=== PATIENT | male | born 1970 | race Caucasian/White ===

== ENCOUNTER 2018-08-22 05:19 | Inpatient (IN) | payer BC ==
[~2018-08-22] VITALS: Ht 177.8 cm; Wt 104.3 kg
--- NOTE | ~2018-08-22 | H ---
[facility] [place] [address] HISTORY AND PHYSICAL Name: ZELALEM MATOS Room #: [facility] M.R.#: [id number] Admission: ������������������ Attend Phys: Abdirizak Arita MD Discharge: ������������������ Date of : 72 Report #: [id number] THIS REPORT FOR: //name// CC: Abdirizak Holm PREOPERATIVE DIAGNOSES: Abdominal pain, cholecystitis with cholesterolosis. HISTORY OF PRESENT ILLNESS: The patient is a 47-year-old who developed abdominal pain in June. The patient woke up with bloating, upset stomach. Discomfort in the right upper quadrant. He had pain in the right upper quadrant, especially when he bent over. His bloating is better. The patient also had increased gas. No vomiting. No diarrhea. The pain did not seem to be related to food. The patient few years ago was found to have acid reflux, was put on omeprazole. No family history of gallbladder disease. The patient had an ultrasound performed that showed echogenic focus in the gallbladder wall, which measured 4 mm. There were two of these. No definitive stone, no wall thickening. These gallbladder polyps that were seen likely represent cholesterolosis. His symptoms are consistent with gallbladder disease. The patient is recommended to have his gallbladder removed. He is brought in for laparoscopic cholecystectomy. PAST MEDICAL HISTORY: The patient has an elevated cholesterol. No heart disease, no diabetes, no high blood pressure, no liver or kidney disease, no history of bleeding disorder. No history of blood clot. MEDICATIONS: Citalopram, omeprazole, atorvastatin. PAST SURGICAL HISTORY: Hernia repairs, right knee surgery in 2018. FAMILY HISTORY: Father of cancer. 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 He does not smoke. Also denies drinking history. REVIEW OF SYSTEMS: No chest pain, shortness of breath or palpitation. PHYSICAL EXAMINATION: GENERAL: The patient is a well-developed, well-nourished, not in acute distress. HEENT: Pupils react to light. Extraocular muscles are intact. Oropharynx is clear. NECK: Soft and supple, no masses. LUNGS: Clear to auscultation. HEART: Regular rate and rhythm. No murmur or gallop. ABDOMEN: Soft with tenderness in right upper quadrant. No mass, guarding, rigidity or rebound. [address] [address] HISTORY AND PHYSICAL Name: ZELALEM MATOS Room #: [facility] M.R.#: [id number] Admission: ������������������ Attend Phys: Abdirizak Arita MD Discharge: ������������������ Date of : 72 Report #: [id number] EXTREMITIES: No cyanosis, clubbing or edema. Motor function is intact. Sensory exam is normal. IMPRESSION AND PLAN: The patient is a 47-year-old with abdominal pain about a month ago. The patient woke up with pain in the right upper quadrant. Nagging pain, discomfort, bloating, upset stomach. This is consistent with gallbladder disease. His ultrasound shows tiny gallbladder wall lesions, probably representing cholesterolosis. The nature of the diagnosis discussed. The patient is recommended to proceed with laparoscopic cholecystectomy. Procedure was discussed in detail. The patient understands the procedure and the risks involved and wishes to proceed. Risk of bleeding, infection, common bile duct injury was discussed. ��������������������������������������������� ���������������������������������������� By: ��������������������������������������������� [id number] Abdirizak Arita MD /nt
--- NOTE | ~2018-08-22 | O ---
[facility] [place] [address] OPERATIVE REPORT Name: ZELALEM MATOS Room #: 459-P ADM IN M.R.#: [id number] Admission: 08/22/18 ������������������ Attend Phys: Abdirizak Arita MD Discharge: ������������������ Date of : 72 Report #: [id number] THIS REPORT FOR: //name// CC: Abdirizak Holm MD PREOPERATIVE DIAGNOSIS: Cholecystitis with cholesterolosis. POSTOPERATIVE DIAGNOSIS: Cholecystitis with cholesterolosis. PROCEDURES PERFORMED: Laparoscopic cholecystectomy with cholangiogram. ANESTHESIA: General anesthesia. COMPLICATIONS: None. ESTIMATED BLOOD LOSS: 5 mL. FINDINGS: The gallbladder is covered by adhesions. The common bile duct is normal and small size on intraoperative cholangiogram. The gallbladder contained extensive cholesterol buildup lining the mucosa. The patient's previous hernia repair looks intact, abdominal wall is smooth. DESCRIPTION OF PROCEDURE: The patient under general anesthesia, abdomen was prepped and draped in sterile fashion. IV antibiotic was administered. The patient had a previous laparoscopic repair of incisional hernia. He actually came in with an emergency incarceration. Laparoscopic hernia was repaired. It is in the epigastric area. Care was used to avoid this area. A cutdown incision was made along the edge of the rectus muscle laterally on the right side. This was slightly lateral to where one of the transfascial suture is located. A 2.5 cm incision was made. The anterior fascia was isolated. This was opened, 0 Vicryl suture placed on the fascia. The second layer is essentially the internal oblique fascia. This was opened and then 0 Vicryl suture placed on it for retraction. The peritoneum was then found and then opened. A 0 Vicryl placed on the edge of the peritoneum. The free abdomen was visualized. A balloon trocar was placed through the peritoneal opening. The balloon was inflated keeping the trocar in place. CO2 was then delivered. The prior hernia repair looks intact. The mesh actually is very difficult to even see, it is all covered by new peritoneum. No defect identified. There were some omental adhesions superiorly. This was left alone. Two 5 mm trocars were placed in the right upper quadrant laterally and 5 mm trocars were placed in the right epigastrium. The view is slightly altered by the initial trocar placement, but still good visualization was able to be obtained. The patient was tilted with his head right side up. The gallbladder is covered by pretty dense fatty adhesions. This started pretty high up on the fundus and then goes all the way down. The adhesions were taken down without difficulty. The [address] [address] OPERATIVE REPORT Name: ZELALEM MATOS Room #: 459-P [facility] IN M.R.#: [id number] Admission: 08/22/18 ������������������ Attend Phys: Abdirizak Arita MD Discharge: ������������������ Date of : 72 Report #: [id number] proximal part of the gallbladder was identified. As the gallbladder tapered, there is a branch of the cystic artery that looped over the junction of cystic duct to the gallbladder. I think this is probably pinching on the gallbladder outlet. Visualizing the gallbladder, we can see cholesterol buildup in the mucosa even through the thin wall. This artery that was loopened over the gallbladder and cystic duct junction was free. Two clips were placed proximally and one distally and then the branch of cystic artery was then divided. The cystic duct was isolated. The cystic duct as it joined the gallbladder is slightly dilated, probably being pinched. A clip was placed in junction of cystic duct to the gallbladder. Opening was made in the cystic duct. Once I made the opening in the cystic duct, there is sludgy material that was in the cystic duct. This was expressed out. Cholangiogram catheter was then placed. It was difficult to get a good seal around the catheter. It did have some extravasation of the dye at the insertion site, but the more proximal cystic duct and the common duct filled out well on the intraoperative cholangiogram. The common duct is pretty small size. No filling defect identified in the common duct. Once the cholangiogram was obtained, the catheter was then removed. The proximal cystic duct was then clipped x 2 and then cystic duct was divided. Dissection was then carried free in the gallbladder, and then at the posterior part of the gallbladder, there is another artery identified. This was clipped x 2 and then the other side was cauterized. There are two small strands of tissue that I also put one clip on. Gallbladder was free from the liver bed without difficulty. The gallbladder was then removed through the Origin balloon trocar site, came out without difficulty. The gallbladder was opened off the field, had extensive cholesterolosis lining the mucosa. A couple of these are 3-4 mm in size, which were the ones that were found on the ultrasound. No lesion of the gallbladder was seen. The interpretation of polyp in the gallbladder is not cholesterol material, cholesterol polyp or cholesterolosis. Liver bed was checked, hemostasis obtained. The clips were intact. I did not see any evidence of any bile around the cystic duct and it is clipped. Irrigation was aspirated out. CO2 was evacuated. Trocars removed. The cutdown site was closed with 0 PDS. The peritoneum was closed with 0 PDS. The internal oblique fascia was closed with 0 PDS [id number] x 2. The external oblique fascia was then closed with 0 PDS [id number] x 2. Skin was irrigated, closed with 5-0 PDS. Steri-Strip, Band-Aids applied. The patient tolerated the procedure well and was taken to recovery. ��������������������������������������������� ���������������������������������������� By: ��������������������������������������������� 1330 [id number] Abdirizak Arita MD /nt
[~2018-08-22 05:19] MED LIST: ALPRAZOLAM 0.0.25 M1 PO; ALPRAZOLAM 0.50.5 M1 PO; ALPRAZOLAM PO; ANDROGEL150 GM; ANDROGEL2.5 GM TD; CELEXA 20 MG TA20 MG PO; CELEXA40 MG PO; CITALOPRAM PO; COLACE100 MG PO; LIPITOR10 MG PO; NORCO 5-325 TA1 EACH PO; OMEPRAZOLE 20 M20 M1 PO; PRILOSEC 20 MG20 MG PO; PRILOSEC40 MG PO; ROPINIROLE HCL2 MG PO; TAMSULOSIN HCL0.4 MG PO; VALIUM5 MG PO
[2018-08-22 09:00] VITALS: BP 104/70
[2018-08-22 15:25] VITALS: BP 115/76
--- NOTE | 2018-08-22 17:51 | NUR ---
ARRIVED FROM PACU. ABDOMEN SOFT ROUND WITH DRY LAP SITES. BS ACITVE AND REPORTS EXPELLING FLATUS. IV INFUSING. TAKING IN CLEAR LIQUIDS WITH GOOD TOLERATION. PAIN RELIEVED WITH ONE HYDROCODONE. DENIES NAUSEA. VERY PLEASANT. LUNGS CLEAR ON ROOM AIR.
[2018-08-22 21:32] VITALS: BP 111/70
--- NOTE | 2018-08-23 03:44 | NUR ---
ASSESSMENT: PT REMAINS ALERT AND ORIENT TIMES FOUR. UP IN THE CORRIDOR WITH STEADY GAIT. INCISIONAL SITES WITH BANDAIDS C/D/I. TOLERATING PO INTAKE OF CLEAR LIQUIDS. ANTICIPATING GOING HOME TODAY. VSS, AFEBRILE. SR PER MONITOR. GOOD PROGRESSION TOWARDS DC GOALS. WILL CONTINUE TO MONITOR.
[2018-08-23 03:58] VITALS: BP 106/70
[2018-08-23 08:00] VITALS: BP 112/81
[2018-08-23] MEDS ORDERED: HYDROCODONE-AP1 EAC6 PO (12:23)
[2018-08-23 12:46] VITALS: BP 112/81
--- NOTE | 2018-08-23 14:33 | NUR ---
PT VS STABLE, PT DISCHARGED HOME. PT LEFT UNIT VIA WHEELCHAIR TO PRIVATE VEHICLE.
--- NOTE | 2018-08-25 17:06 | PATH ---
[facility] [address] [place] [address] PATHOLOGY RPT PROCEDURE Name: ZELALEM MATOS Room #: 459-P DIS IN M.R.#: [id number] ������������������ Admission: 08/22/18 ������������������ Date of : 72 Discharge: 08/23/18 Report #: [id number] Path Case #: [id number] [facility] Accession Number: [id number] . 01 Material submitted: . gallbladder - GALLBLADDER . 01 Clinical history: . Gallbladder disease . 02 Diagnosis: Gallbladder, cholecystectomy: - Mild chronic cholecystitis. - Extensive cholesterolosis. (IUV:pit 08/25/2018) QTP/08/25/2018 . 02 Electronically signed: . Cammy Melendez MD, Pathologist NPI- [id number] . 01 Gross description: . The specimen is received in formalin labeled "Zelalem Matos, gallbladder" and consists of a previously opened pink-green gallbladder measuring 6.9 cm in length and up to 3.4 cm in diameter. The margin is inked black. The mucosa is green with extensive yellow streaks with an average wall thickness of 0.1 cm. No masses or calculi are identified. [employer] sections are submitted in A1. (SDY; 08/22/2018) SYU/SYU . 02 Pathologist provided ICD-10: K81.1, K82.4 . 02 CPT . 979698 Specimen Comment: A courtesy copy of this report has been sent to Specimen Comment: [phone], . Specimen Comment: Report sent to / DR COELLO Performed at: [address], [place] [id number] MD Hayder House MD Phone: [phone] Performed at: [address] [id number] MD Cammy Melendez MD Phone: [phone]
== END 2018-08-23 14:37 | disposition home or self-care (01) | DRG 419 ==
LOC: TBA 05:19 → OR 05:19 → TBA 05:20 → OR 11:55 → 4W 13:49 → OR 13:49 → 4W 08-23 14:37
PROVIDERS: ADMIT Surgery
PROC: BF121ZZ Fluoroscopy of Gallbladder using Low Osmolar Contrast (ICD-10-PCS; principal; 2018-08-22)
PROC: 0FT44ZZ Resection of Gallbladder, Percutaneous Endoscopic Approach (ICD-10-PCS; principal; 2018-08-22)
DX: K81.9 Cholecystitis, unspecified (principal); Z80.9 Family history of malignant neoplasm, unspecified; Z79.899 Other long term (current) drug therapy
CPT/HCPCS: 10047; 50010; 50101; 50411; 50555; 50558; 51489; 53065; 53307; 53310; 55245; 55317; 56462; 56525; 56526; 62110; 62900; 70005